=== PATIENT | male | born 1985 | race African-American/Black ===

== ENCOUNTER 2018-05-31 21:59 | Emergency (ER) | payer OTHER ==
[2018-05-31] MEDS ORDERED: HYDROMORPHONE HCL INJ/PF 2 MG/ML AMPULE IM ONE (22:59)
--- NOTE | 2018-05-31 22:59 | ER Document Report ---
ED General - General Chief Complaint: Rectal Pain Stated Complaint: RECTAL PAIN Time Seen by Provider: 05/31/18 22:41 Notes: Patient is a 33-year-old male who presents emergency department with a chief complaint of rectal pain. His symptoms started on Friday. For the past few days he has been constipated. He noted that there was some pus from his anus. He has tried Preparation H for symptoms, but has had no relief. He states that every time he has a bowel movement, the area hurts. He denies any nausea, vomiting, or diarrhea. He denies any past medical history. TRAVEL OUTSIDE OF THE [place] IN LAST 30 DAYS: No - Related Data Allergies/Adverse Reactions: No Known Allergies Allergy (Unverified 05/31/18 22:04) Past Medical History - Social History Smoking Status: Never Smoker Family History: Reviewed & Not Pertinent Patient has suicidal ideation: No Patient has homicidal ideation: No Renal/ Medical History: Denies: Hx Peritoneal Dialysis Review of Systems - Review of Systems Notes: REVIEW OF SYSTEMS: CONSTITUTIONAL : Denies recent illness. Denies recent unintentional weight loss. Denies fever, chills, or sweats. EENT: Denies eye, ear, throat, or mouth pain, discharge, or symptoms. Denies nasal or sinus congestion. CARDIOVASCULAR: Denies chest pain. RESPIRATORY: Denies shortness of breath, cough, congestion, difficulty breathing, or wheezing. GASTROINTESTINAL: See HPI GENITOURINARY: Denies difficulty urinating, burning, blood in urine, urgency or frequency. MUSCULOSKELETAL: Denies neck and back pain. Denies joint pain or swelling. SKIN: Denies rash, itchiness, or lesions HEMATOLOGIC : Denies easy bruising or bleeding. LYMPHATIC: Denies swollen, painful, enlarged glands. NEUROLOGICAL: Denies no numbness or tingling denies weakness. Denies headache. Denies altered mental status. Denies alteration in speech. PSYCHIATRIC: Denies stress, anxiety, alteration in sleep patterns, or depress ion. All other systems reviewed and negative. Physical Exam - Vital signs Vitals: Temp Pulse Resp BP Pulse Ox 99.0 F 91 16 151/86 H 96 05/31/18 22:15 05/31/18 22:15 05/31/18 22:15 05/31/18 22:15 05/31/18 22:15 - Notes Notes: PHYSICAL EXAMINATION: GENERAL: Appears well, healthy, well-nourished, no acute distress. HEAD: Normocephalic, atraumatic. EYES: PERRL, conjunctiva normal, all extraocular movements intact, sclera nonicteric ENT: Moist mucous membranes. NECK: Supple, no noticeable swelling, redness, rash. Normal range of motion. LUNGS: Equal breath sounds bilaterally and clear to auscultation. No wheezes rales or rhonchi. CARDIOVASCULAR: S1-S2, regular rate, regular rhythm. Radial pulses 2+, normal. ABDOMEN: Normoactive bowel sounds. Soft, nontender, no guarding, no rebound tenderness, and no masses palpated. EXTREMITIES: Normal strength and range of motion, no pitting or edema. No cyanosis. NEUROLOGICAL: Moves all extremities upon command. Strength 5/5 in all extremities. PSYCH: Normal mood, normal affect. SKIN: Warm, dry. No rash, lesions, ulcerations noted. Normal skin turgor. ANUS/RECTUM: Perirectal abscess noted. Course - Re-evaluation Re-evalutation: 05/31/18 23:10 Patient's rectal exam is suspicious for a perirectal abscess. I have consulted Dr. Gillette to have him assessed the patient. 05/31/18 23:20 Dr. Gillette is at bedside and he is evaluating patient. He states that the patient needs to have his perirectal abscess drained. Dr. Gillette will perform the procedure here in the emergency department. 06/01/18 00:20 Dr. Gillette finished the. He perirectal abscess drainage. He wants the patient to follow-up at the outpatient clinic in [address] Gillette also wants the patient placed on doxycycline. Verbal discharge instructions were given to the patient. They verbalized understanding. They are stable for discharge. - Vital Signs Vital signs: Temp Pulse Resp BP Pulse Ox 98 F 78 14 148/84 H 99 05/31/18 23:54 05/31/18 23:54 05/31/18 23:54 05/31/18 23:54 05/31/18 23:54 - Laboratory Result Diagrams: 05/31/18 23:22 05/31/18 23:22 Laboratory results interpreted by me: 05/31/18 05/31/18 23:22 23:22 WBC 14.1 H Absolute Lymphocytes 5.2 H Total Protein 8.3 H Discharge - Discharge Clinical Impression: Perirectal abscess Condition: Stable Disposition: HOME, SELF-CARE Additional Instructions: You were seen in the emergency department for rectal pain. You had a perirectal abscess and Dr. Gillette drained the abscess in the emergency department. Please follow-up with the surgical clinic in 1 week. You have been started on antibiotics. Please take your antibiotics as prescribed. Even if you feel better, please finish your antibiotics. You have also been given hydrocodone, medication for pain. You may take the pain medication as directed for your pain. Please start taking MiraLAX 1 scoop daily for your constipation you may increase or decrease the amount of MiraLAX you take based off your stool consistency. If you develop a fever greater than 100.4 F, have worsening symptoms, or have any symptoms that are worrisome to you, please return to the emergency department. Please call the surgical clinic in the morning to make an appointment. Prescriptions: Hydrocodone Bit/Acetaminophen [Hydrocodon-Acetaminophen 5-325] 1 each PO Q4HP PRN #20 tablet PRN Reason: Doxycycline Hyclate 100 mg PO BID #14 capsule Forms: Return to Work Referrals: CHRYSTAL GILLETTE MD [ACTIVE STAFF] - 06/08/18
[2018-05-31] MEDS ORDERED: HYDROMORPHONE HCL INJ/PF 2 MG/ML AMPULE IV ONE (23:16)
[2018-05-31 23:33] LABS: ABSOLUTE BASOPHILS # (AUTO) 0.2 10^3/uL (0.0-0.2); ABSOLUTE EOSINOPHILS # (AUTO) 0.3 10^3/uL (0.0-0.6); ABSOLUTE LYMPHOCYTES (AUTO) 5.2 10^3/uL (0.5-4.7); ABSOLUTE NEUT (AUTO) 7.4 10^3/uL (1.7-8.2); BASOPHILS % (AUTO) 1.3 % (0-2); EOSINOPHILS % (AUTO) 2.2 % (0-6); HEMATOCRIT 45.9 % (37.9-51.0); HEMOGLOBIN 15.2 g/dL (13.5-17.0); MEAN CORPUSCULAR HEMOGLOBIN 27.7 pg (27.0-33.4); MEAN CORPUSCULAR HGB CONC 33.1 g/dL (32.0-36.0); MEAN CORPUSCULAR VOLUME 84 fl (80-97); PLATELET COUNT 246 10^3/uL (150-450); RED BLOOD COUNT 5.48 10^6/uL (4.35-5.55); RED CELL DISTRIBUTION WIDTH 13.1 % (11.5-14.0); SEGMENTED NEUTROPHILS % (AUTO) 52.5 % (42-78); TOTAL CELLS COUNTED % (AUTO) 100 %; WHITE BLOOD COUNT 14.1 10^3/uL (4.0-10.5)
[2018-05-31] MEDS ORDERED: LIDOCAINE 1% INJ-PF (10 MG/ML) 30 ML SDV INJ ONE (23:47)
[2018-05-31 23:55] VITALS: BP 148/84
[2018-06-01 00:09] LABS: ALANINE AMINOTRANSFERASE 28 U/L (21-72); ALBUMIN 4.9 g/dL (3.5-5.0); ALKALINE PHOSPHATASE 61 U/L (38-126); ANION GAP 9 (5-19); ASPARTATE AMINO TRANSFERASE 35 U/L (17-59); BILIRUBIN,DIRECT 0.1 mg/dL (0.0-0.4); BILIRUBIN,TOTAL 0.4 mg/dL (0.2-1.3); BLOOD UREA NITROGEN 13 mg/dL (7-20); CALCIUM 9.4 mg/dL (8.4-10.2); CARBON DIOXIDE 25 mmol/L (22-30); CHLORIDE 106 mmol/L (98-107); GLUCOSE 94 mg/dL (75-110); SODIUM 139.8 mmol/L (137-145); TOTAL PROTEIN 8.3 g/dL (6.3-8.2)
[2018-06-01] MEDS ORDERED: HYDROCODONE/ACETAMINOPHEN 5-325 MG TABLET PO ONE (00:32)
--- NOTE | 2018-06-01 06:24 | Operative Report ---
Nonrecallable Operative Report DATE OF SURGERY: 06/01/18 PREOPERATIVE DIAGNOSIS: Perirectal abscess POSTOPERATIVE DIAGNOSIS: Perirectal abscess OPERATION: Incision and drainage of perirectal abscess SURGEON: CHRYSTAL HERNANDEZ ANESTHESIA: Local TISSUE REMOVED OR ALTERED: None COMPLICATIONS: None apparent ESTIMATED BLOOD LOSS: Minimal PROCEDURE: Drains/implants: 4 x 4 gauze. Procedure in detail after informed consent was obtained, the patient was laid in the right lateral decubitus position in the emergency department. The area of the anus and rectum were prepped and draped in a normal sterile fashion. 1% lidocaine was used to infiltrate the area of the perirectal abscess. An 11 blade scalpel was used to excise an ellipse of tissue. An abscess cavity was identified. A moderate amount of purulent drainage was expressed. Once this was completed the wound/cavity was cleaned. The wound was packed with a 4 x 4 gauze. A dressing was placed, and the procedure was concluded. All sponge, instrument, and needle counts were correct x2. Condition: Stable.
--- NOTE | 2018-06-01 06:29 | PDOC CONSULTATION ---
Consultation Consult Date: 06/01/18 Consult reason:: Perirectal abscess History of Present Illness History of Present Illness: GOLDEN SYLVESTER is a 33 year old male seen in consultation at the request of the emergency room physician. This patient has a 2-3-day history of swelling and pain in the perirectal area. He has never had anything similar to this in the past. The patient denies fevers or chills. He reports large amounts of pain, 10 out of 10 that is sharp and stabbing. He denies any purulent drainage. He denies constipation or hemorrhoids. He denies rectal bleeding. Patient also denies chest pain, shortness of breath, nausea, vomiting, headache, orthostasis, dizziness, sore throat. Social History Smoking Status: Never Smoker Family History Family History: Reviewed & Not Pertinent Parental Family History Reviewed: Yes Children Family History Reviewed: Yes Sibling(s) Family History Reviewed.: Yes Medication/Allergy Home Medications: Doxycycline Hyclate 100 mg PO BID #14 capsule 06/01/18 Hydrocodone Bit/Acetaminophen [Hydrocodon-Acetaminophen 5-325] 1 each PO Q4HP PRN #20 tablet 06/01/18 Allergies/Adverse Reactions: No Known Allergies Allergy (Unverified 05/31/18 22:04) Review of Systems Constitutional: ABSENT: anorexia, chills, fatigue Eyes: ABSENT: visual disturbances Ears: ABSENT: hearing changes Nose, Mouth, and Throat: ABSENT: sore throat Cardiovascular: ABSENT: chest pain, palpitations Respiratory: ABSENT: cough, dyspnea Gastrointestinal: PRESENT: other - Perirectal abscess, pain. ABSENT: abdominal pain, constipation, nausea, vomiting Genitourinary: ABSENT: dysuria Integumentary: PRESENT: other - Pain and swelling in the perirectal area Neurological: ABSENT: abnormal speech, confusion, convulsions, dizziness Psychiatric: ABSENT: anxiety, depression Endocrine: ABSENT: cold intolerance, heat intolerance Hematologic/Lymphatic: ABSENT: easy bleeding, easy bruising Physical Exam Vital Signs: Temp Pulse Resp BP Pulse Ox 98 F 78 14 148/84 H 99 05/31/18 23:54 05/31/18 23:54 05/31/18 23:54 05/31/18 23:54 05/31/18 23:54 Intake & Output 05/30/18 05/31/18 06/01/18 06:59 06:59 06:59 Weight 97.522 kg General appearance: PRESENT: mild distress - Perirectal pain Head exam: PRESENT: atraumatic, normocephalic Eye exam: PRESENT: EOMI, PERRLA. ABSENT: scleral icterus Mouth exam: PRESENT: neck supple Neck exam: ABSENT: meningismus, tenderness, thyromegaly, tracheal deviation Respiratory exam: PRESENT: clear to auscultation ashlee, unlabored. ABSENT: chest wall tenderness, tachypnea, wheezes Cardiovascular exam: PRESENT: RRR Pulses: PRESENT: normal radial pulses Vascular exam: ABSENT: pallor GI/Abdominal exam: PRESENT: soft. ABSENT: distended, rebound, tenderness Rectal exam: PRESENT: tenderness, other - Fluctuant, tender mass in the perirectal area. There is erythema present. No purulent drainage at present. Extremities exam: ABSENT: clubbing Musculoskeletal exam: ABSENT: deformity Neurological exam: PRESENT: alert, awake, oriented to person, oriented to place, oriented to time, oriented to situation, CN II-XII grossly intact Psychiatric exam: ABSENT: agitated, anxious, depressed Focused psych exam: ABSENT: delusional Skin exam: ABSENT: cyanosis, jaundice Results Laboratory Results: 05/31/18 23:22 05/31/18 23:22 05/31/18 05/31/18 23:22 23:22 WBC 14.1 H RBC 5.48 Hgb 15.2 Hct 45.9 MCV 84 MCH 27.7 MCHC 33.1 RDW 13.1 Plt Count 246 Seg Neutrophils % 52.5 Lymphocytes % 37.0 Monocytes % 7.0 Eosinophils % 2.2 Basophils % 1.3 Absolute Neutrophils 7.4 Absolute Lymphocytes 5.2 H Absolute Monocytes 1.0 Absolute Eosinophils 0.3 Absolute Basophils 0.2 Sodium 139.8 Potassium 4.0 Chloride 106 Carbon Dioxide 25 Anion Gap 9 BUN 13 Creatinine 0.87 Est GFR ( Amer) > 60 Est GFR (Non-Af Amer) > 60 Glucose 94 Calcium 9.4 Total Bilirubin 0.4 AST 35 ALT 28 Alkaline Phosphatase 61 Total Protein 8.3 H Albumin 4.9 Assessment & Plan - Diagnosis (1) Perirectal abscess Is this a current diagnosis for this admission?: Yes - Plan Summary Plan Summary: 33-year-old male with a new onset perirectal abscess. The patient has fluctuance and tenderness on rectal exam. The abscess is small. I have offered him bedside drainage versus admission with OR drainage. The patient has chosen bedside drainage. He is also requesting to be discharged home. This is reasonable, considering he has no systemic signs of toxicity. Risks/benefits discussed, informed consent obtained, and all questions answered.
== END 2018-06-01 01:13 | disposition home or self-care (01) ==
LOC: ER 21:59
DX: K61.1 Rectal abscess (principal)
CPT/HCPCS: 99284; 96372; 36415; 85025; 80053; 46040; J3490; J1170; A6266

== ENCOUNTER 2018-08-18 06:00 | Day surgery (SDC) | payer OTHER ==
[~2018-08-18 06:00] MED LIST: IBUPROFEN 800 MG in NORMAL SALINE 250 ML IV PRN; LACTATED RINGERS 1000 ML IV PRN; METRONIDAZOLE 500 MG/NS RTU 500 MG/100 ML RTUPB IV ONE; METRONIDAZOLE 500 MG/NS RTU 500 MG/100 ML RTUPB IV PRN; RINGERS SOLUTION,LACTATED 1,000 ML IV PRN
[2018-08-18] MEDS ORDERED: HYDROMORPHONE HCL INJ/PF 2 MG/ML AMPULE ONE (07:05)
[2018-08-18] MEDS ORDERED: MIDAZOLAM 2 MG/2 ML INJ ONE (07:05)
[2018-08-18] MEDS ORDERED: ACETAMINOPHEN 1,000 MG/100 ML RTUPB IV ONE (07:06)
[2018-08-18] MEDS ORDERED: PROPOFOL INJ 200 MG/20 ML VIAL IV ONE (07:06)
[2018-08-18] MEDS ORDERED: LIDOCAINE 2% INJ (20 MG/ML) 20 ML MDV ONE (07:07)
[2018-08-18] MEDS ORDERED: BUPIVACAINE HCL 0.5 % INJ/PF 30 ML SDV ONE (07:41)
[2018-08-18] MEDS ORDERED: LIDOCAINE 2% JELLY 30 ML TUBE ONE (07:41)
[2018-08-18] MEDS ORDERED: ONDANSETRON HCL INJ/PF 4 MG/2 ML SDV IV PRN (08:29)
[2018-08-18] MEDS ORDERED: MEPERIDINE HCL/PF INJ 25 MG/1 ML DISP.SYRIN IV PRN (08:29)
[2018-08-18] MEDS ORDERED: PROMETHAZINE HCL INJ 25 MG/1 ML VIAL IV PRN (08:29)
[2018-08-18] MEDS ORDERED: DIPHENHYDRAMINE HCL 50 MG/ML VIAL IV PRN (08:29)
[2018-08-18] MEDS ORDERED: MORPHINE SULFATE 10 MG/ML INJ IV PRN (08:29)
[2018-08-18] MEDS ORDERED: FENTANYL CITRATE INJ/PF 100 MCG/2 ML AMPUL IV PRN ×3 (08:29)
--- NOTE | 2018-08-18 09:17 | Operative Report ---
Nonrecallable Operative Report DATE OF SURGERY: 08/18/18 PREOPERATIVE DIAGNOSIS: Possible fistula in ano. POSTOPERATIVE DIAGNOSIS: 1. No sign of fistula. 2. Small perirectal abscess. OPERATION: Incision and drainage of a perirectal abscess. SURGEON: CHRYSTAL HERNANDEZ ANESTHESIA: GA TISSUE REMOVED OR ALTERED: None COMPLICATIONS: None apparent ESTIMATED BLOOD LOSS: Minimal PROCEDURE: Drains/implants: 4 x 4 gauze. Procedure in detail: After informed consent was obtained, the patient was brought to the operating room and laid in the prone jackknife position. The area of the rectum was prepped and draped in a normal sterile fashion. Quarter percent Marcaine was used to create an anal block. Examination of the rectum was then undertaken. The Hill-Perales retractor was inserted into the rectum. A small opening was seen at the 12 o'clock position superior to the sphincter complex. This was probed with a lacrimal probe, but it did not extend into the rectum. Peroxide was then injected into the small cavity, without spilling into the rectum. The small abscess cavity was then laid open and cleaned vigorously. No fistula tract could be identified by visual inspection, lacrimal probe, or irrigation. Once this was confirmed, the small abscess cavity was irrigated and packed. A dressing was placed, and the procedure was concluded. All sponge, instrument, and needle counts were correct x2. Condition: Stable.
--- NOTE | 2018-08-18 09:19 | Discharge Summary ---
Discharge Summary (SDC) - Discharge Final Diagnosis: Small perirectal abscess Date of Surgery: 08/18/18 Discharge Date: 08/18/18 Condition: Stable Treatment or Instructions: Discharge home. Diet as tolerated. Activity: Nonstrenuous. Follow-up with me in 7-10 days. [place] 10/325 mg p.o. every 6 hours as needed for pain. Fiber supplement twice daily. Colace 200 mg (2 tablets) p.o. twice daily. Warm sits baths twice daily and after bowel movements. Use Neosporin to incision twice daily. Discharge Diet: As Tolerated Respiratory Treatments at Home: Deep Breathing/Coughing, Incentive Spirometer Discharge Activity: Balance Activity w/Rest Home Care Assistance: None Needed Report the Following to Your Physician Immediately: Shortness of Breath, Nausea, Vomiting, Increase in Pain, Fever over 101 Degrees, Unusual Bleeding, Redness, Swelling, Warmth
[2018-08-18] MEDS ORDERED: HYDROCODONE/ACETAMINOPHEN 10-325 MG TABLET ONE (09:58)
[2018-08-18] MEDS ORDERED: ONDANSETRON HCL INJ/PF 4 MG/2 ML SDV ONE (11:27)
[2018-08-18] MEDS ORDERED: ROCURONIUM BROMIDE INJ 50 MG/5 ML VIAL IV ONE (11:27)
[2018-08-18] MEDS ORDERED: DEXAMETHASONE SOD PHOSPHATE INJ 4 MG/1 ML VIAL ONE (11:27)
[2018-08-18] MEDS ORDERED: SUCCINYLCHOLINE CHLORIDE INJ 200 MG/10 ML VIAL ONE (11:27)
[2018-08-18 11:45] VITALS: BP 109/70
== END 2018-08-18 10:55 | disposition home or self-care (01) ==
LOC: OROUT 06:00
PROVIDERS: ATTEND Surgery
DX: K61.1 Rectal abscess (principal); F17.210 Nicotine dependence, cigarettes, uncomplicated; Z01.818 Encounter for other preprocedural examination
CPT/HCPCS: 46040; J2250; J3490 ×3; J1100; J1170; J0330; J2405; J7050; J2704; J0131; J1741; 902

== ENCOUNTER → 2019-07-06 | Outpatient (CLI) | payer OTHER ==
--- NOTE | 2019-07-06 12:47 | RADIOLOGY REPORT (SQ) ---
EXAM DESCRIPTION: CHEST PA/LATERAL COMPLETED DATE/TIME: 07/06/2019 12:19 pm REASON FOR STUDY: COUGH COMPARISON: None. EXAM PARAMETERS: NUMBER OF VIEWS: two views TECHNIQUE: Digital Frontal and Lateral radiographic views of the chest acquired. RADIATION DOSE: NA LIMITATIONS: none FINDINGS: LUNGS AND PLEURA: No opacities, masses or pneumothorax. No pleural effusion. MEDIASTINUM AND HILAR STRUCTURES: No masses or contour abnormalities. HEART AND VASCULAR STRUCTURES: Heart normal size. No evidence for failure. BONES: No acute findings. HARDWARE: None in the chest. OTHER: No other significant finding. IMPRESSION: NO SIGNIFICANT RADIOGRAPHIC FINDING IN THE CHEST. TECHNICAL DOCUMENTATION: JOB ID: [id number] 2010 [employer]- All Rights Reserved Reading location - IP/workstation name: [email or web address]
== END ==
LOC: RAD 11:41
PROVIDERS: ATTEND Nurse Practitioner Acute Care
DX: R05 Cough (principal)
CPT/HCPCS: 71046

== ENCOUNTER 2019-10-01 08:24 | Day surgery (SDC) | payer OTHER ==
[2019-09-30 11:05] LABS: HEMATOCRIT 44.8 % (37.9-51.0); HEMOGLOBIN 15.2 g/dL (13.5-17.0); MEAN CORPUSCULAR HEMOGLOBIN 28.4 pg (27.0-33.4); MEAN CORPUSCULAR HGB CONC 33.8 g/dL (32.0-36.0); MEAN CORPUSCULAR VOLUME 84 fl (80-97); PLATELET COUNT 259 10^3/uL (150-450); RED BLOOD COUNT 5.34 10^6/uL (4.35-5.55); RED CELL DISTRIBUTION WIDTH 13.2 % (11.5-14.0); WHITE BLOOD COUNT 7.4 10^3/uL (4.0-10.5)
[2019-09-30 11:28] LABS: ANION GAP 10 (5-19); BLOOD UREA NITROGEN 12 mg/dL (7-20); CALCIUM 9.8 mg/dL (8.4-10.2); CARBON DIOXIDE 27 mmol/L (22-30); CHLORIDE 102 mmol/L (98-107); GLUCOSE 112 mg/dL (75-110); POTASSIUM 4.7 mmol/L (3.6-5.0)
[2019-10-01] MEDS ORDERED: FENTANYL CITRATE INJ/PF 100 MCG/2 ML AMPUL ONE ×2 (08:34→11:42)
[2019-10-01] MEDS ORDERED: PROPOFOL INJ 200 MG/20 ML VIAL IV ONE (08:35)
[2019-10-01] MEDS ORDERED: ONDANSETRON HCL INJ/PF 4 MG/2 ML SDV ONE (08:35)
[2019-10-01] MEDS ORDERED: MIDAZOLAM 2 MG/2 ML INJ ONE (08:35)
[2019-10-01] MEDS ORDERED: METRONIDAZOLE 500 MG/NS RTU 500 MG/100 ML RTUPB IV ONE (09:59)
[2019-10-01] MEDS ORDERED: BUPIVACAINE HCL 0.5 % INJ/PF 30 ML SDV ONE (10:09)
[2019-10-01] MEDS ORDERED: LIDOCAINE 2% JELLY 30 ML TUBE ONE (10:09)
[2019-10-01] MEDS ORDERED: DIPHENHYDRAMINE HCL 50 MG/ML VIAL IV PRN (10:11)
[2019-10-01] MEDS ORDERED: PROMETHAZINE HCL INJ 25 MG/1 ML VIAL IV PRN (10:11)
[2019-10-01] MEDS ORDERED: FENTANYL CITRATE INJ/PF 100 MCG/2 ML AMPUL IV PRN ×3 (10:11)
[2019-10-01] MEDS ORDERED: MEPERIDINE HCL/PF INJ 25 MG/1 ML DISP.SYRIN IV PRN (10:11)
[2019-10-01] MEDS ORDERED: MORPHINE SULFATE 10 MG/ML INJ IV PRN (10:11)
[2019-10-01] MEDS ORDERED: OXYCODONE-ACETAMINOPHEN 5-325 MG TABLET PO PRN ×2 (10:11)
[2019-10-01] MEDS ORDERED: BUPIVACAINE INJ/PF LIPOSOME/PF 266 MG/20 ML SDV ONE (10:42)
[2019-10-01] MEDS ORDERED: HYDROCODONE/ACETAMINOPHEN 10-325 MG TABLET PO PRN (11:22)
--- NOTE | 2019-10-01 11:27 | Discharge Summary ---
Discharge Summary (SDC) - Discharge Final Diagnosis: Anorectal fistula Date of Surgery: 10/01/19 Discharge Date: 10/01/19 Condition: Stable Treatment or Instructions: Discharge home. Diet as tolerated. Activity: Nonstrenuous. Follow-up with me in 7 to 10 days. 5% lidocaine ointment to rectum 3 times daily. Mltw-hza-tzqjirh bacitracin ointment to rectum 3 times daily. Ibuprofen 800 mg p.o. 3 times daily. [place] 10/325 mg p.o. every 6 hours as needed for pain. Sitz baths in warm soapy water twice daily and after bowel movements. Prescriptions: Hydrocodone/Acetaminophen [[place] 10-325 mg Tablet] 1 tab PO Q6HP PRN #28 tablet PRN Reason: For Pain Referrals: CHRYSTAL HERNANDEZ MD [ACTIVE STAFF] - 10/14/19 11:00 am Discharge Diet: As Tolerated Respiratory Treatments at Home: Deep Breathing/Coughing, Incentive Spirometer Discharge Activity: Activity As Tolerated, Balance Activity w/Rest Home Care Assistance: None Needed Report the Following to Your Physician Immediately: Shortness of Breath, Nausea, Vomiting, Increase in Pain, Fever over 101 Degrees, Unusual Bleeding, Redness, Swelling, Warmth
--- NOTE | 2019-10-01 11:39 | Operative Report ---
Nonrecallable Operative Report DATE OF SURGERY: 10/01/19 PREOPERATIVE DIAGNOSIS: Anorectal fistula POSTOPERATIVE DIAGNOSIS: Anorectal fistula, posterior position OPERATION: 1. Rectal exam under anesthesia. 2. Endorectal advancement flap SURGEON: CHRYSTAL HUGHES CEMENT SIDE LASTER: VIRGINIA MENDOSA ANESTHESIA: LMAC TISSUE REMOVED OR ALTERED: None COMPLICATIONS: None apparent ESTIMATED BLOOD LOSS: Minimal PROCEDURE: Drains/implants: None. Procedure in detail: After informed consent was obtained, the patient was brought to the operating room and laid in the prone jackknife position. 20 cc of Exparel was used to anesthetize the area. The Hill-Perales retractor was inserted. There was an obvious posterior fistula tract. It was probed with a lacrimal probe. The fistula tract was found to involve the sphincter complex. The external fistula tract was excised down to the sphincter complex. This was done without damaging or injuring the sphincter muscles. Next the internal tract was excised, elevating the mucosa away from the submucosal tissues. The internal submucosal opening was closed using 3-0 Vicryl suture in [id number] fashion. A flap of healthy mucosa was then raised proximally. The endorectal mucosal flap was advanced distally, and sutured closed using 3-0 Vicryl suture in running fashion. Once this was completed, a dressing was placed, and the procedure was concluded. All sponge, instrument, and needle counts were correct x2. Condition: Stable. Virginia Mendosa PA-C was scrubbed and present the entirety of the procedure. She assisted with all portions of the procedure including examination of the rectum, delineation of the fistula tract, excision of the external fistula tract, creation of the endorectal advancement flap, placement of the dressing.
[2019-10-01] MEDS ORDERED: HYDROCODONE/ACETAMINOPHEN 10-325 MG TABLET ONE (12:19)
[2019-10-01 14:42] VITALS: BP 126/74
== END 2019-10-01 13:50 | disposition home or self-care (01) ==
LOC: OROUT 08:24
PROVIDERS: ATTEND Surgery
DX: K60.5 Anorectal fistula (principal); Z01.818 Encounter for other preprocedural examination
CPT/HCPCS: 36415; 85027; 87635; 80048; 46288; J2250; J3490 ×2; J3010; J2405; J2704; C9290; 902

== ENCOUNTER 2020-03-07 10:07 | Day surgery (SDC) | payer OTHER ==
[~2020-03-07 10:07] MED LIST changes: +FENTANYL CITRATE INJ/PF 100 MCG/2 ML AMPUL ONE; -IBUPROFEN 800 MG in NORMAL SALINE 250 ML IV PRN; +LIDOCAINE 0.5% INJ-PF (5 MG/ML) 50 ML SDV SUBCUT PRN; -METRONIDAZOLE 500 MG/NS RTU 500 MG/100 ML RTUPB IV ONE; -METRONIDAZOLE 500 MG/NS RTU 500 MG/100 ML RTUPB IV PRN; +MIDAZOLAM 2 MG/2 ML INJ ONE; +PROPOFOL INJ 200 MG/20 ML VIAL IV ONE; -RINGERS SOLUTION,LACTATED 1,000 ML IV PRN
[2020-03-07] MEDS ORDERED: SUCCINYLCHOLINE CHLORIDE INJ 200 MG/10 ML VIAL ONE (11:50)
[2020-03-07] MEDS ORDERED: BUPIVACAINE INJ/PF LIPOSOME/PF 266 MG/20 ML SDV ONE (14:32)
[2020-03-07] MEDS ORDERED: LIDOCAINE 2% JELLY 30 ML TUBE ONE (14:32)
[2020-03-07] MEDS ORDERED: BACITRACIN ZINC OINTMENT 15 GM ONE (14:32)
[2020-03-07] MEDS ORDERED: DIPHENHYDRAMINE HCL 50 MG/ML VIAL IV PRN (14:51)
[2020-03-07] MEDS ORDERED: PROMETHAZINE HCL INJ 25 MG/1 ML VIAL IV PRN ×2 (14:51)
[2020-03-07] MEDS ORDERED: MEPERIDINE HCL/PF INJ 25 MG/1 ML DISP.SYRIN IV PRN (14:51)
[2020-03-07] MEDS ORDERED: FENTANYL CITRATE INJ/PF 100 MCG/2 ML AMPUL IV PRN ×3 (14:51)
[2020-03-07] MEDS ORDERED: MORPHINE SULFATE 10 MG/ML INJ IV PRN (14:51)
[2020-03-07] MEDS ORDERED: ONDANSETRON HCL INJ/PF 4 MG/2 ML SDV IV PRN (14:51)
--- NOTE | 2020-03-07 15:23 | Discharge Summary ---
Discharge Summary (SDC) - Discharge Final Diagnosis: internal hemorrhoids. Rectal bleeding Date of Surgery: 03/07/20 Discharge Date: 03/07/20 Condition: Stable Treatment or Instructions: Discharge home. Diet as tolerated. Activity: Nonstrenuous. Follow-up with [facility] in 3 weeks. Discharge Diet: As Tolerated Respiratory Treatments at Home: Deep Breathing/Coughing, Incentive Spirometer Discharge Activity: Balance Activity w/Rest Home Care Assistance: None Needed Report the Following to Your Physician Immediately: Shortness of Breath, Nausea, Vomiting, Increase in Pain, Yellow Skin, Fever over 101 Degrees, Unusual Bleeding, Redness
--- NOTE | 2020-03-07 15:31 | Operative Report ---
Nonrecallable Operative Report DATE OF SURGERY: 03/07/20 PREOPERATIVE DIAGNOSIS: rectal bleeding POSTOPERATIVE DIAGNOSIS: 1. Rectal bleeding. 2. Internal hemorrhoids OPERATION: 1. Colonoscopy to the cecum. 2. Rectal exam under anesthesia with rubber band ligation of internal hemorrhoids x2 (right posterior and left lateral columns). SURGEON: CHRYSTAL HERNANDEZ 1ST COUNTER INTELLIGENCE TECHNICIAN: VIRGINIA MENDOSA ANESTHESIA: GA TISSUE REMOVED OR ALTERED: none COMPLICATIONS: none apparent ESTIMATED BLOOD LOSS: minimal PROCEDURE: Procedure in detail: After informed consent was obtained, the patient was brought into the operating room and laid in the prone jackknife position. The colonoscope was inserted into the rectum. The scope was passed up the rectum, sigmoid colon, descending colon, across the transverse colon, down the ascending colon, and into the cecum. The ileocecal valve and appendiceal orifice were identified. The scope was then withdrawn, circumferentially noting the mucosa. The prep was good. The scope was withdrawn past the ascending colon, transverse colon, descending colon, sigmoid colon, and into the rectum. In the rectum, a retroflexion maneuver was performed, noting enlarged internal hemorrhoids. The scope was straightened, air was suctioned from the rectum, the scope was removed, and this portion of the procedure was concluded. Please note there were no masses, lesions, areas of inflammation, tumors, cancers, or other suspicious lesions throughout the colon. Attention was then turned to the rectal examination under anesthesia. The patient remained in the prone jackknife position. The area of the anus and rectum were prepped and draped in a normal sterile fashion. Exparel was used to create an anal block. A Hill-Perales retractor was then inserted into the rectum. The patient had a history of a previous endorectal advancement flap. He did have some scar tissue present in the posterior position, related to his previous surgery. There was no evidence of obvious recurrent fistula or anal fissure. The patient did have enlarged internal hemorrhoids in the right posterior and left lateral positions. These hemorrhoids were ligated using the rubber band ligation device. 2 rubber bands were used (1 in the left lateral, and one in the right posterior position). After the rubber bands were found to be in good place, the Hill-Perales retractor was removed, and the procedure was concluded. All sponge, instrument, and needle counts were correct x2. Condition: Stable. Virginia Mendosa PA-C was scrubbed and present the entirety the procedure. She assisted with all portions of the procedure including positioning of the patient, inspection of the rectum, placement of the rubber bands.
[2020-03-07] MEDS ORDERED: FENTANYL CITRATE INJ/PF 100 MCG/2 ML AMPUL ONE (15:33)
[2020-03-07 17:23] VITALS: BP 120/77
== END 2020-03-07 17:10 | disposition home or self-care (01) ==
LOC: END 10:07
PROVIDERS: ATTEND Surgery
DX: K62.5 Hemorrhage of anus and rectum (principal); K64.8 Other hemorrhoids; Z03.818 Encounter for observation for suspected exposure to other biological agents ruled out; F17.210 Nicotine dependence, cigarettes, uncomplicated; Z98.890 Other specified postprocedural states; Z87.19 Personal history of other diseases of the digestive system
CPT/HCPCS: 45378; 46221; 87635; 00811; J2250; J3490; J3010; J0330; J2704; C9290; C9803; 45380; 811